=== PATIENT | male | born 1985 | race Caucasian/White ===

== ENCOUNTER 2023-07-17 12:59 | Outpatient (RCR) | payer BC, SELFPAY | END 2023-07-17 23:59 | disposition home or self-care (01) | LOC: RPT 12:59 | PROVIDERS: ATTENDING PHYSICIAN Surgery; PRIMARYCARE PHYSICIAN Physician Assistant Medical | DX: K40.20 Bilateral inguinal hernia, without obstruction or gangrene, not specified as recurrent (principal); M62.81 Muscle weakness (generalized); R27.8 Other lack of coordination; Z73.6 Limitation of activities due to disability; Z98.890 Other specified postprocedural states | CPT/HCPCS: 97162; 97530 ==

== ENCOUNTER 2023-08-21 09:01 | Outpatient (RCR) | payer BC, SELFPAY | END 2023-08-21 23:59 | disposition home or self-care (01) | LOC: RPT 09:01 | PROVIDERS: ATTENDING PHYSICIAN Surgery; PRIMARYCARE PHYSICIAN Physician Assistant Medical | DX: K40.20 Bilateral inguinal hernia, without obstruction or gangrene, not specified as recurrent (principal); Z73.6 Limitation of activities due to disability; M62.81 Muscle weakness (generalized); R27.8 Other lack of coordination; Z98.890 Other specified postprocedural states | CPT/HCPCS: 97530 ==